=== PATIENT | female | born 1980 ===

== ENCOUNTER 2020-05-26 09:20 | Inpatient (IN) | payer MEDICAID ==
[~2020-05-26] VITALS: Ht 160 cm; Wt 46.3 kg
[2020-05-26] MEDS ORDERED: BISACODYL 10 MG SUPP PR PRN (10:00)
[2020-05-26] MEDS ORDERED: ACETAMINOPHEN 325 MG TABLET PO PRN (10:00)
[2020-05-26] MEDS ORDERED: ONDANSETRON ODT 4 MG PO PRN (10:00)
[2020-05-26] MEDS ORDERED: POLYETHYLENE GLYCOL 17 GM PACKET PO PRN (10:00)
[2020-05-26] MEDS ORDERED: DOCUSATE 100 MG CAPSULE PO PRN (10:00)
[2020-05-26] MEDS ORDERED: PLEASE ENTER HEIGHT AND WEIGHT MC SCH (19:30)
[2020-05-26 23:16] VITALS: BP 121/83
[2020-05-27] MEDS ORDERED: CLON-364 PO (01:11)
[2020-05-27] MEDS ORDERED: DEXT5TAB17 PO (01:11)
[2020-05-27] MEDS ORDERED: SERT50TA PO (01:11)
[2020-05-27 06:53] LABS: CHOL/HDL RATIO 4.3; FREE T4 (FREE THYROXINE) 0.95 ng/dL (0.76-1.46); LDL/HDL RATIO 2.8 (0.5-3.0)
[2020-05-27 07:09] VITALS: BP 118/80
[2020-05-27] MEDS: LORazepam 0.5MG TABLET PO PRN ×2 (13:28→20:16)
[2020-05-27] MEDS: SERTRALINE 100MG TABLET PO SCH (13:28)
[2020-05-27 18:52] VITALS: BP 118/81
[2020-05-27] MEDS: DOXEPIN 25 MG CAPSULE PO SCH (20:15)
[2020-05-28 07:13] VITALS: BP 116/70
[2020-05-28] MEDS: THIAMINE 100MG TABLET PO SCH (08:25)
[2020-05-28] MEDS: FOLIC ACID 1 MG TABLET PO SCH (08:25)
[2020-05-28] MEDS: MULTIVITAMIN 1 TABLET PO SCH (08:25)
[2020-05-28] MEDS: SERTRALINE 100MG TABLET PO SCH (08:25)
[2020-05-28] MEDS: LORazepam 0.5MG TABLET PO PRN ×2 (13:06→20:35)
[2020-05-28 20:06] VITALS: BP 103/68
[2020-05-28] MEDS: DOXEPIN 25 MG CAPSULE PO SCH (20:35)
[2020-05-29 07:14] VITALS: BP 116/80
[2020-05-29] MEDS: FOLIC ACID 1 MG TABLET PO SCH (08:58)
[2020-05-29] MEDS: MULTIVITAMIN 1 TABLET PO SCH (08:58)
[2020-05-29] MEDS: SERTRALINE 100MG TABLET PO SCH (08:58)
[2020-05-29] MEDS: LORazepam 0.5MG TABLET PO PRN (08:58)
[2020-05-29] MEDS: THIAMINE 100MG TABLET PO SCH (08:58)
[2020-05-29] MEDS ORDERED: DOXE25CA PO (11:02)
[2020-05-29] MEDS ORDERED: SERT100T32 PO (11:02)
[2020-05-29] MEDS ORDERED: MULT-449 PO (11:02)
== END 2020-05-29 15:55 | disposition home or self-care (01) | DRG 751 ==
LOC: 3E 18:57
PROVIDERS: ADMIT Psychiatry & Neurology Psychosomatic Medicine; ATTEND Psychiatry & Neurology Psychosomatic Medicine
DX: F33.2 Major depressive disorder, recurrent severe without psychotic features (principal); F41.1 Generalized anxiety disorder; F98.8 Other specified behavioral and emotional disorders with onset usually occurring in childhood and adolescence; G47.00 Insomnia, unspecified; Z91.5 Personal history of self-harm; Z79.899 Other long term (current) drug therapy; Z88.0 Allergy status to penicillin
CPT/HCPCS: 36415; 71045; 80061; 84439; 84443; 93005